=== PATIENT | female | born 1935 | race Hispanic/Latino ===

== ENCOUNTER 2019-06-23 17:35 | Inpatient (IN) | payer MEDICARE ==
[~2019-06-23] VITALS: Ht 165.1 cm; Wt 133.6 kg
[2019-06-23 18:23] LABS: BASOPHILS % (AUTO) 0.2 % (0.0-5.0); EOSINOPHILS % (AUTO) 1.3 % (0.0-8.0); LYMPHOCYTES % (AUTO) 8.6 % (21.0-51.0); MEAN CORPUSCULAR HEMOGLOBIN 28.3 pg (27.0-33.0); MEAN CORPUSCULAR HGB CONC 33.8 g/dL (32.0-36.0); MEAN CORPUSCULAR VOLUME 83.6 fL (79-99); MONOCYTES % (AUTO) 8.1 % (3.0-13.0); NEUTROPHILS % (AUTO) 81.8 % (40.0-77.0); PLATELET COUNT (AUTO) 256 K/uL (130-400); RED BLOOD CELL COUNT(AUTO) 4.18 MIL/uL (4.00-5.50); RED CELL DISTRIBUTION WIDTH 15.8 % (11.0-15.5); WHITE BLOOD COUNT (AUTO) 15.9 K/uL (4.8-10.8)
[2019-06-23 18:35] LABS: INR 1.09 (0.85-1.15); PARTIAL THROMBOPLASTIN TIME 26.8 SEC (26.3-35.5); PROTHROMBIN TIME 11.4 SEC (9.6-11.6)
[2019-06-23] MEDS ORDERED: ONDANSETRON HCL 4 MG/2 ML VIAL ONE (18:37)
[2019-06-23] MEDS ORDERED: MORPHINE SULFATE 4 MG/1ML SYG ONE (18:37)
[2019-06-23 18:41] LABS: CARBON DIOXIDE 22 mmol/L (21-32); CHLORIDE 106 mmol/L (101-111); CREATININE 1.7 mg/dL (0.5-1.5); GLOMERULAR FILTR. RATE CALC 31 mL/min (>60); GLUCOSE,RANDOM 148 mg/dL (70-105); POTASSIUM 4.3 mmol/L (3.5-5.1); SODIUM SERUM 139 mmol/L (136-145); UREA NITROGEN, BLOOD 51 mg/dL (7-18)
[2019-06-23 18:52] LABS: ALANINE AMINOTRANSFERASE 25 U/L (12-78); ALBUMIN 2.8 g/dL (3.5-5.0); ASPARTATE AMINOTRANSFERASE 22 U/L (10-37); BILIRUBIN,TOTAL 0.5 mg/dL (0.2-1.0); CREATINE KINASE, TOTAL 85 U/L (21-232); MYOGLOBIN 227 ng/mL (10-92); TOTAL PROTEIN, SERUM 7.5 g/dL (6.0-8.3); TROPONIN I < 0.04 ng/mL (0.00-0.06)
[2019-06-23] MEDS ORDERED: HEPARIN SODIUM 5000UNIT/ML 1ML VIAL ONE (18:56)
[2019-06-23] MEDS ORDERED: HEPARIN 25000 UNITS/250 ML D5W 250 ML IV ONE (18:56)
[2019-06-23] MEDS ORDERED: ZOSYN 3.375GM+NS 50ML 50 ML IV ONE (19:37)
[2019-06-23] MEDS ORDERED: KETOROLAC TROMETHAMINE 15MG/ML IV PRN (20:45)
[2019-06-23] MEDS: SODIUM CHLORIDE 0.9% 1000ML 1,000 ML IV SCH (20:45)
[2019-06-23] MEDS ORDERED: VANCOMYCIN 1GM+NS 250ML 250 ML IV SCH (20:45)
[2019-06-23] MEDS ORDERED: ONDANSETRON HCL 4 MG/2 ML VIAL IVP PRN (20:45)
[2019-06-23] MEDS ORDERED: VANCOMYCIN PROTOCOL PER PHARMACY IV SCH (21:15)
[2019-06-23] MEDS ORDERED: COMPOUND IV REFRIGERATED 1 EACH IVSOLN MISC PRN (21:30)
[2019-06-23] MEDS ORDERED: VANCOMYCIN 2.5 GM in SODIUM CHLORIDE 0.9% 500ML 500 ML IV ONE (21:30)
[2019-06-23] MEDS ORDERED: VANCOMYCIN 1GM+NS 250ML 250 ML IV ONE (21:46)
[2019-06-23] MEDS ORDERED: SODIUM CHLORIDE 0.9% 1000ML 1,000 ML IV ONE (21:47)
[2019-06-23 22:05] LABS: BASOPHILS % (AUTO) 0.4 % (0.0-5.0); HEMATOCRIT 35.2 % (36-48); LYMPHOCYTES % (AUTO) 9.2 % (21.0-51.0); MEAN CORPUSCULAR HEMOGLOBIN 27.4 pg (27.0-33.0); MEAN CORPUSCULAR HGB CONC 32.9 g/dL (32.0-36.0); MEAN CORPUSCULAR VOLUME 83.3 fL (79-99); MONOCYTES % (AUTO) 8.4 % (3.0-13.0); NUCLEATED RED BLOOD CELLS 0.1 % (0.0-0.19); PLATELET COUNT (AUTO) 250 K/uL (130-400); RED BLOOD CELL COUNT(AUTO) 4.23 MIL/uL (4.00-5.50); RED CELL DISTRIBUTION WIDTH 15.9 % (11.0-15.5); WHITE BLOOD COUNT (AUTO) 16.6 K/uL (4.8-10.8)
[2019-06-23] MEDS ORDERED: KETOROLAC TROMETHAMINE 15MG/ML ONE (22:07)
[2019-06-23] MEDS ORDERED: FAMOTIDINE/PF 20 MG/2 ML VIAL IV ONE (22:08)
[2019-06-23] MEDS ORDERED: SODIUM CHLORIDE 0.9% 500ML 500 ML IV ONE (23:44)
[2019-06-24 00:54] LABS: INR 1.17 (0.85-1.15); PROTHROMBIN TIME 12.2 SEC (9.6-11.6)
[2019-06-24] MEDS ORDERED: ZOSYN 3.375GM+NS 50ML 50 ML IV ONE ×3 (04:18→21:49)
[2019-06-24] MEDS ORDERED: SODIUM CHLORIDE 0.9% 1000ML 1,000 ML IV ONE (04:36)
[2019-06-24 04:40] LABS: BASOPHILS % (AUTO) 0.6 % (0.0-5.0); EOSINOPHILS % (AUTO) 1.6 % (0.0-8.0); HEMATOCRIT 31.9 % (36-48); LYMPHOCYTES % (AUTO) 8.9 % (21.0-51.0); MEAN CORPUSCULAR HEMOGLOBIN 27.5 pg (27.0-33.0); MEAN CORPUSCULAR VOLUME 83.4 fL (79-99); MONOCYTES % (AUTO) 8.7 % (3.0-13.0); NEUTROPHILS % (AUTO) 80.2 % (40.0-77.0); PLATELET COUNT (AUTO) 228 K/uL (130-400); RED BLOOD CELL COUNT(AUTO) 3.82 MIL/uL (4.00-5.50); RED CELL DISTRIBUTION WIDTH 15.9 % (11.0-15.5); WHITE BLOOD COUNT (AUTO) 15.3 K/uL (4.8-10.8)
[2019-06-24 04:48] LABS: HEMOGLOBIN A1C 8.9 % (4.0-6.0)
[2019-06-24 04:58] LABS: ALBUMIN 2.4 g/dL (3.5-5.0); BILIRUBIN,TOTAL 0.6 mg/dL (0.2-1.0); CREATININE 1.7 mg/dL (0.5-1.5); MAGNESIUM 2.2 mg/dL (1.80-2.40); POTASSIUM 4.1 mmol/L (3.5-5.1); TOTAL PROTEIN, SERUM 6.5 g/dL (6.0-8.3)
[2019-06-24] MEDS: ZOSYN 3.375GM+NS 50ML 50 ML IV SCH ×2 (06:00→18:00)
[2019-06-24] MEDS ORDERED: HEPARIN 25000 UNITS/250 ML D5W 250 ML IV ONE (06:19)
[2019-06-24] MEDS ORDERED: FAMOTIDINE/PF 20 MG/2 ML VIAL IV ONE ×2 (08:26→21:50)
[2019-06-24] MEDS: FAMOTIDINE/PF 20 MG/2 ML VIAL IV SCH (09:00)
[2019-06-24 09:14] LABS: INR 1.16 (0.85-1.15); PROTHROMBIN TIME 12.1 SEC (9.6-11.6)
[2019-06-24 09:24] LABS: PARTIAL THROMBOPLASTIN TIME 94.7 SEC (26.3-35.5)
[2019-06-24] MEDS: SODIUM CHLORIDE 0.9% 1000ML 1,000 ML IV SCH ×2 (10:05→23:25)
[2019-06-24] MEDS ORDERED: HYDRALAZINE HCL 20 MG/ML VIAL IV PRN (11:15)
[2019-06-24] MEDS ORDERED: ACET-2247 PO (12:35)
[2019-06-24] MEDS ORDERED: BUME1TAB7 PO (12:35)
[2019-06-24] MEDS ORDERED: ALBUTEROL IH (12:35)
[2019-06-24] MEDS ORDERED: LEVO500T2 PO (12:35)
[2019-06-24] MEDS ORDERED: FAMO-136 PO (12:35)
[2019-06-24] MEDS ORDERED: ATOR20TA65 PO (12:35)
[2019-06-24] MEDS ORDERED: EQUALACTIN PO (12:35)
[2019-06-24] MEDS ORDERED: PLETAL PO (12:35)
[2019-06-24] MEDS ORDERED: GLUCOSAMINE PO (12:35)
[2019-06-24] MEDS ORDERED: POLY17PO29 PO (12:35)
[2019-06-24] MEDS ORDERED: ROBITUSSIN DM PO (12:35)
[2019-06-24] MEDS ORDERED: INSU100I24 SQ ×2 (12:35)
[2019-06-24] MEDS ORDERED: MULT-1268 PO (12:35)
[2019-06-24] MEDS ORDERED: SPIR25TA PO (12:35)
[2019-06-24] MEDS ORDERED: FERR-6 PO (12:35)
[2019-06-24] MEDS ORDERED: SERT25TA PO (12:35)
[2019-06-24] MEDS ORDERED: CEPH500B PO (12:35)
[2019-06-24] MEDS ORDERED: DOCU-116 PO (12:35)
[2019-06-24] MEDS ORDERED: DILT240C46 PO (12:35)
[2019-06-24] MEDS ORDERED: ATEN100T PO (12:35)
[2019-06-24] MEDS ORDERED: TOPICORT TP (12:35)
[2019-06-24] MEDS ORDERED: POTA20TA82 PO (12:35)
[2019-06-24] MEDS ORDERED: METO5TAB7 PO (12:35)
[2019-06-24] MEDS ORDERED: DICL2100G TP (12:35)
[2019-06-24] MEDS ORDERED: FUROSEMIDE 10 MG/ML 2ML VIAL ONE (13:39)
[2019-06-24] MEDS ORDERED: ACETAMINOPHEN EXTRA STRENGTH 500 MG TABLET ONE (15:57)
[2019-06-24 17:13] LABS: INR 1.12 (0.85-1.15); PARTIAL THROMBOPLASTIN TIME 29.1 SEC (26.3-35.5); PROTHROMBIN TIME 11.7 SEC (9.6-11.6)
[2019-06-24] MEDS ORDERED: MORPHINE SULFATE 2 MG/ML 1ML SYG ONE (21:50)
[2019-06-24 23:06] LABS: INR 1.25 (0.85-1.15)
[2019-06-24 23:10] LABS: APPEARANCE,URINE Clear (CLEAR); BILIRUBIN,URINE Negative (NEGATIVE); COLOR,URINE Yellow (YELLOW); GLUCOSE, URINE (UA) Negative (NEGATIVE); KETONES,URINE Negative (NEGATIVE); LEUKOCYTE ESTERASE ,URINE Small (NEGATIVE); NITRATE,URINE Negative (NEGATIVE); OCCULT BLOOD,URINE Trace (NEGATIVE); PROTEIN,URINE Negative (NEGATIVE); UROBILINOGEN,URINE 0.2 mg/dL (0.2-1.0)
[2019-06-24 23:12] LABS: PARTIAL THROMBOPLASTIN TIME > 120.0 SEC (26.3-35.5)
[2019-06-24 23:24] LABS: BACTERIA,URINE Rare /HPF (None Seen); MUCUS,URINE Moderate LPF (None Seen); RBC,URINE 0-1 /HPF (0-1); SQUAMOUS EPITHELIAL CELL,UR Moderate /HPF (0-2)
--- NOTE | 2019-06-24 23:45 | NUR ---
ARRIVAL PATIENT ARRIVED ON UNIT. C/O FULL BODY PAIN WHEN BEING MOVED.C/O BLE PAIN WHEN TOUCHED. R TOES AND FOOT BLACK/ NECROTIC. FOOT COOL TO TOUCH. PICTURES IN CHART. ABSENT PEDAL PULSES. PATIENT REFUSING ASSESSMENT OF POPLITEAL AND FEMORAL PULSES. ALL LUNG SOUNDS DIMINISHED. HARD TO AUSCULTATE POSTERIOR LUNG SOUNDS,PATIENT REFUSES TO BE MOVED. HUITRON CATHETER IN PLACE DRAINING CLEAR YELLOW URINE. PATIENT NPO, AWAITING FURTHER ORDERS FROM [facility] FOR INTERVENTION.
[2019-06-25 00:17] VITALS: BP 139/37
[2019-06-25] MEDS ORDERED: HEPARIN 25000 UNITS/250 ML D5W 250 ML IV ONE (03:46)
[2019-06-25] MEDS ORDERED: HEPARIN SODIUM 5000UNIT/ML 1ML VIAL SQ PRN (04:15)
[2019-06-25] MEDS ORDERED: HEPARIN 25000 UNITS/250 ML D5W 250 ML IV SCH (04:15)
[2019-06-25 04:21] VITALS: BP 112/37
[2019-06-25] MEDS: INSULIN HUMULIN R 100 UNIT/ML 3ML SQ SCH ×4 (05:57→20:42)
[2019-06-25] MEDS: ZOSYN 3.375GM+NS 50ML 50 ML IV SCH ×2 (06:00→17:04)
--- NOTE | 2019-06-25 07:02 | NUR ---
PTT DRAWN AT 0630. AWAITING RESULTS FOR HEPARIN DRIP. DRIP CURRENTLY AT 22ML/HR.
[2019-06-25] MEDS: FAMOTIDINE/PF 20 MG/2 ML VIAL IV SCH (07:14)
[2019-06-25] MEDS: ACETAMINOPHEN EXTRA STRENGTH 500 MG TABLET PO PRN ×2 (08:00→17:24)
[2019-06-25 08:04] VITALS: BP 139/57
[2019-06-25 08:11] LABS: BASOPHILS % (AUTO) 0.7 % (0.0-5.0); EOSINOPHILS % (AUTO) 2.1 % (0.0-8.0); LYMPHOCYTES % (AUTO) 10.2 % (21.0-51.0); MEAN CORPUSCULAR HEMOGLOBIN 27.6 pg (27.0-33.0); MEAN CORPUSCULAR HGB CONC 32.7 g/dL (32.0-36.0); MEAN CORPUSCULAR VOLUME 84.5 fL (79-99); MONOCYTES % (AUTO) 6.7 % (3.0-13.0); NEUTROPHILS % (AUTO) 80.3 % (40.0-77.0); NUCLEATED RED BLOOD CELLS 0.1 % (0.0-0.19); PLATELET COUNT (AUTO) 205 K/uL (130-400); RED BLOOD CELL COUNT(AUTO) 4.62 MIL/uL (4.00-5.50); RED CELL DISTRIBUTION WIDTH 15.9 % (11.0-15.5); WHITE BLOOD COUNT (AUTO) 13.7 K/uL (4.8-10.8)
--- NOTE | 2019-06-25 08:20 | NUR ---
ASSESSMENT PT IS AAOX3 DENIES CP DENIES SOB DENIES NV STATES SHE FEELS BACK PAIN, PO TYLENOL GIVEN. HEPARIN INFUSING PER PROTOCOL. RESTING IN BED. CALL LIGHT WITHIN REACH. FAMILY IS AT BEDSIDE.
[2019-06-25 08:45] LABS: B-TYPE NATRIURETIC PEPTIDE 324 pg/mL (0-100)
--- NOTE | 2019-06-25 08:51 | NUR ---
DR AVILES ROUNDED / ORTHO CONSULT ORTHO CONSULT PLACED WITH OLIVIER AT DR SIM ANSWERING SERVICE
--- NOTE | 2019-06-25 09:15 | NUR ---
CONSULT CHANGED TO DR ARNALDO SIM STATES HE DOESNT DO AMPUTATIONS. DR MCINTOSH CALLED FOR CONSULT AND STATES HE WILL SEE PATIENT.
[2019-06-25 11:46] VITALS: BP 135/48
[2019-06-25] MEDS: SODIUM CHLORIDE 0.9% 1000ML 1,000 ML IV SCH (11:52)
--- NOTE | 2019-06-25 13:19 | NUR ---
D/C PLAN CM spoke to pts sister named Rozina Rodriguez regarding d/c planning. pt is penitentiary resident at [facility] in [place]. States plan is to return to same facility at discharge. CM received telephone consent for [facility] to facility. CM to f/u. Addendum: 06/25/19 at 1321 by SHAINA HINTON CM Amended: Links added.
[2019-06-25] MEDS ORDERED: MORPHINE SULFATE 2 MG/ML 1ML SYG IVP PRN (14:15)
[2019-06-25 15:28] VITALS: BP 99/52
--- NOTE | 2019-06-25 16:53 | NUR ---
STATUS RESTING IN BED, DENIES PAIN. STATES MORPHINE IV HELPED GREATLY FOR RIGHT LEG/ FOOT PAIN. CALL LIGHT WITHIN REACH.
[2019-06-25] MEDS: HEPARIN 25000 UNITS/250 ML D5W 250 ML IV PRN (17:27)
[2019-06-25] MEDS ORDERED: VANCOMYCIN 1.5 GM in SODIUM CHLORIDE 0.9% 250 ML IV SCH (18:00)
[2019-06-25 20:05] VITALS: BP 129/33
[2019-06-26 00:22] VITALS: BP 137/28
[2019-06-26 02:52] LABS: CREATININE 1.6 mg/dL (0.5-1.5); POTASSIUM 3.7 mmol/L (3.5-5.1)
[2019-06-26 04:21] VITALS: BP 122/30
[2019-06-26] MEDS: ZOSYN 3.375GM+NS 50ML 50 ML IV SCH ×2 (05:35→17:44)
[2019-06-26] MEDS: INSULIN HUMULIN R 100 UNIT/ML 3ML SQ SCH ×4 (07:00→21:42)
[2019-06-26] MEDS: FAMOTIDINE/PF 20 MG/2 ML VIAL IV SCH (07:15)
[2019-06-26 07:56] VITALS: BP 122/39
--- NOTE | 2019-06-26 08:00 | NUR ---
ASSESSMENT PT IS AAOX3 DENIES CP DENIES SOB DENIES NV. HEPARIN INFUSING PER PROTOCOL. RESTING IN BED. CALL LIGHT WITHIN REACH. FAMILY IS AT BEDSIDE.
[2019-06-26] MEDS: HEPARIN 25000 UNITS/250 ML D5W 250 ML IV PRN (09:21)
[2019-06-26] MEDS: SODIUM CHLORIDE 0.9% 1000ML 1,000 ML IV SCH ×2 (09:24→14:46)
[2019-06-26] MEDS: MORPHINE SULFATE 2 MG/ML 1ML SYG IVP PRN (11:39)
[2019-06-26 11:40] VITALS: BP 108/43
--- NOTE | 2019-06-26 13:10 | NUR ---
DR SMITH ROUNDED SAW PATIENT, ORDERS RECEIVED. POSSIBLE SURGERY TOMORROW AFTER 3PM, HE IS NOT SURE YET. JERRY SANDRA MADE AWARE.
[2019-06-26 15:40] VITALS: BP 103/44
[2019-06-26 19:49] VITALS: BP 138/30
[2019-06-27] VITALS (9 sets, daily range): BP systolic 100–172; BP diastolic 30–64
[2019-06-27] MEDS: HEPARIN 25000 UNITS/250 ML D5W 250 ML IV PRN ×2 (04:18→18:21)
[2019-06-27] MEDS: SODIUM CHLORIDE 0.9% 1000ML 1,000 ML IV SCH ×2 (04:23→18:16)
[2019-06-27 04:28] LABS: BASOPHILS % (AUTO) 0.3 % (0.0-5.0); EOSINOPHILS % (AUTO) 0.7 % (0.0-8.0); HEMATOCRIT 32.5 % (36-48); LYMPHOCYTES % (AUTO) 8.3 % (21.0-51.0); MEAN CORPUSCULAR HEMOGLOBIN 27.7 pg (27.0-33.0); MEAN CORPUSCULAR HGB CONC 33.4 g/dL (32.0-36.0); MONOCYTES % (AUTO) 8.8 % (3.0-13.0); NEUTROPHILS % (AUTO) 81.9 % (40.0-77.0); PLATELET COUNT (AUTO) 217 K/uL (130-400); RED BLOOD CELL COUNT(AUTO) 3.92 MIL/uL (4.00-5.50); RED CELL DISTRIBUTION WIDTH 15.7 % (11.0-15.5); WHITE BLOOD COUNT (AUTO) 16.1 K/uL (4.8-10.8)
--- NOTE | 2019-06-27 05:00 | NUR ---
Ptt under therapeutic bolus of 35u/kg given and increased according to protocol.
[2019-06-27] MEDS: ZOSYN 3.375GM+NS 50ML 50 ML IV SCH ×2 (05:21→18:16)
[2019-06-27] MEDS: INSULIN HUMULIN R 100 UNIT/ML 3ML SQ SCH ×4 (06:31→21:00)
--- NOTE | 2019-06-27 07:39 | NUR ---
Patient remains on heparin drip. Report given to Jose Enrique in regards to possible procedure with Salinae. Aware heparin drip needs to be stopped 6 hours prior.
--- NOTE | 2019-06-27 09:30 | NUR ---
CALLED DR. Jesus ANNA'S OFFICE ORDERED TO INQUIRE RE:PT.'S SURGERY. SPOKE WITH HAYDEN, OFFICE STAFF MEMBER, WHO WILL "GET IN TOUCH" WITH DR. ANNA AND WILL CALL BACK WITH ORDERS. AWAITING RESPONSE.
[2019-06-27] MEDS: FAMOTIDINE/PF 20 MG/2 ML VIAL IV SCH (09:42)
--- NOTE | 2019-06-27 10:10 | NUR ---
RECEIVED RETURN CALL FROM DR. WILFRIDO BLAKE'S OFFICE STAFF MEMBER. STATES DR. ANNA WILL NOT PERFORM PT.'S SURGERY TODAY AND WILL COME TO PT.'S ROOM AND SPEAK WITH HER LATER TODAY REGARDING THE MATTER.
[2019-06-27] MEDS: VANCOMYCIN 1.5 GM in SODIUM CHLORIDE 0.9% 250 ML IV SCH (18:16)
[2019-06-28 03:28] VITALS: BP 102/29
[2019-06-28] MEDS: MORPHINE SULFATE 2 MG/ML 1ML SYG IVP PRN (05:20)
[2019-06-28] MEDS: ZOSYN 3.375GM+NS 50ML 50 ML IV SCH ×2 (05:20→17:43)
[2019-06-28 07:56] VITALS: BP_SYST 126; BP_SYST 140; BP_DIAS 42; BP_DIAS 58
[2019-06-28] MEDS: FAMOTIDINE/PF 20 MG/2 ML VIAL IV SCH (08:50)
[2019-06-28] MEDS: SODIUM CHLORIDE 0.9% 1000ML 1,000 ML IV SCH (08:50)
--- NOTE | 2019-06-28 09:48 | NUR ---
DR. SEGOVIA IN ROOM SPEAKING WITH PT. AND FAMILY MEMBERS AT BEDSIDE RE:PLAN OF CARE. QUESTIONS ANSWERED BY DR. SEGOVIA.
[2019-06-28] MEDS: HEPARIN 25000 UNITS/250 ML D5W 250 ML IV PRN (10:31)
--- NOTE | 2019-06-28 11:17 | NUR ---
SPOKE WITH PT.'S DAUGHTER, NANETTE HERNANDEZ (DECISION MAKER PER FAMILY) AT BEDSIDE, AND FAMILY MEMBERS AT BEDSIDE RE:CODE STATUS. ALL IN AGREEMENT FOR PT. TO CONTINUE TO BE A FULL CODE. INFORMED FAMILY MEMBERS CODE STATUS MAY BE CHANGED/MODIFIED AT ANY TIME THEY WISH, QUESTIONS ANSWERED AND VERBALIZED MUTUAL UNDERSTANDING.
--- NOTE | 2019-06-28 11:24 | NUR ---
CALLED DR. Jesus ANNA'S OFFICE TO INQUIRE RE:SURGICAL INTERVENTION SCHEDULING, PER PT.'S FAMILY REQUEST. SPOKE WITH HAYDEN, OFFICE STAFF MEMBER WHO STATES HE WILL NOTIFY DR. ANNA OF CALL AND PT.'S FAMILY CONCERNS, WELL PROVIDE MD WITH NUMBER PROVIDED FOR RETURN CALL TO THIS NURSE.
[2019-06-28] MEDS: INSULIN HUMULIN R 100 UNIT/ML 3ML SQ SCH ×3 (11:30→21:12)
[2019-06-28 11:48] VITALS: BP 118/67
[2019-06-28 15:43] VITALS: BP 111/40
[2019-06-28] MEDS: VANCOMYCIN 1.5 GM in SODIUM CHLORIDE 0.9% 250 ML IV SCH (17:44)
[2019-06-28 19:14] VITALS: BP 133/28
[2019-06-28 23:35] VITALS: BP 112/54
[2019-06-29] VITALS (23 sets, daily range): BP systolic 90–150; BP diastolic 18–75
--- NOTE | 2019-06-29 | NUR ---
Dialysis removed 1.7 liters. Patient tolerated procedure well. Addendum: 06/29/19 at 9918 by CHUCK BOTELLO RN RN wrong patient.
[2019-06-29] MEDS: MORPHINE SULFATE 2 MG/ML 1ML SYG IVP PRN (03:18)
[2019-06-29 04:27] LABS: INR 1.18 (0.85-1.15); PARTIAL THROMBOPLASTIN TIME 32.8 SEC (26.3-35.5); PROTHROMBIN TIME 12.3 SEC (9.6-11.6)
[2019-06-29] MEDS: ZOSYN 3.375GM+NS 50ML 50 ML IV SCH ×2 (05:56→18:09)
[2019-06-29] MEDS: INSULIN HUMULIN R 100 UNIT/ML 3ML SQ SCH ×4 (07:30→21:00)
[2019-06-29] MEDS: FAMOTIDINE/PF 20 MG/2 ML VIAL IV SCH (08:57)
[2019-06-29] MEDS ORDERED: SODIUM CHLORIDE 0.9% 1000ML 1,000 ML IV ONE (12:58)
[2019-06-29] MEDS ORDERED: PROPOFOL 10 MG/ML 20ML VIAL IV ONE ×2 (14:01→14:30)
[2019-06-29] MEDS ORDERED: ROCURONIUM 10MG/1ML SYR 10 MG/ML ML ONE ×2 (14:02→14:30)
[2019-06-29] MEDS ORDERED: ROPIVACAINE 0.5% 5MG/ML 30ML IJ ONE (14:03)
--- NOTE | 2019-06-29 14:28 | NUR ---
RD NOTIFICATION Dx: Right Foot Necrosis. Hx: DM, Bedbound, HTN. Diet: NPO; pending procedure. Po intake poor and has poor appetite according to family. Family stated pt has a history of Constipation. RD recommends continue current diet. Advance as tolerated when medically feasible to 75gmCCD. Offer Glucerna TID after procedure. Pt seems to do better with nutritional shakes as per family. Recommend feeding assistance with all meals. RD will continue to monitor and follow up as needed. Keysha Carter MS, ELOISA Addendum: 06/29/19 at [address] RD Amended: Links added.
[2019-06-29] MEDS ORDERED: LIDOCAINE PF 2% 5ML ABBOJECT ONE (14:30)
[2019-06-29] MEDS ORDERED: FENTANYL CITRATE PF 50 MCG/1 ML 5ML AMP IV ONE (14:30)
[2019-06-29] MEDS ORDERED: GLYCOPYRROLATE 1 MG/5 ML SYRINGE ONE ×2 (14:53→16:11)
[2019-06-29] MEDS ORDERED: HYDRALAZINE HCL 20 MG/ML VIAL ONE (15:34)
[2019-06-29] MEDS ORDERED: FENTANYL CITRATE PF 50 MCG/1 ML 2ML VIAL ONE (15:39)
[2019-06-29] MEDS ORDERED: BACITRACIN 50,000 UNIT VIAL ONE (15:44)
[2019-06-29] MEDS ORDERED: NEOSTIGMINE 5MG/5ML SYR IV ONE (16:11)
--- NOTE | 2019-06-29 17:10 | NUR ---
TIMMY MÁRQUEZ NOTIFIED OF PT'S LOW DIASTOLIC BP. NS 200 ML BOLUS ORDERED. GIVEN IN PACU. Addendum: 06/29/19 at 1731 by JOSE ELIAS MONTANA RN RN Amended: Links added.
--- NOTE | 2019-06-29 17:20 | NUR ---
TIMMY ARNETT TO SEE PT. VS WERE OBSERVED, AND PT ASSESSED BY [facility], ORDERS WERE GIVEN TO TRANSFER PT TO HER RM, FOR FURTHER MONITORING. Addendum: 06/29/19 at 1748 by JOSE ELIAS MONTANA RN RN Amended: Links added.
[2019-06-29] MEDS: VANCOMYCIN 1.5 GM in SODIUM CHLORIDE 0.9% 250 ML IV SCH (18:08)
[2019-06-29] MEDS ORDERED: OXYCODONE/ACETAMIN 5/325MG TAB PO PRN (19:45)
[2019-06-29] MEDS ORDERED: HYDROMORPHONE 1 MG/1 ML AMP IVP PRN (19:45)
--- NOTE | 2019-06-29 20:00 | NUR ---
PM NOTE PT RESTING IN BED, NO S/S OF DISTRESS. PATIENT ON NASAL CANULA, FAMILY AT BEDSIDE. PATIENT DENIES PAIN AT THIS TIME. SURGICAL DRESSING TO RIGHT STUMP C/D/I. HUITRON TO GRAVITY, URINE BLOOD TINGED. ON TELEMETRY PATIENT AFLUTTER AT 52. CALL LIGHT WITHIN REACH, INSTRUCTED TO CALL FOR ASSISTANCE. VERBALIZED UNDERSTANDING.
[2019-06-30] VITALS (7 sets, daily range): BP systolic 15–152; BP diastolic 39–46
[2019-06-30] MEDS: KETOROLAC TROMETHAMINE 30MG/ML IV PRN ×3 (01:25→21:32)
[2019-06-30 03:52] LABS: BASOPHILS % (AUTO) 0.6 % (0.0-5.0); EOSINOPHILS % (AUTO) 0.1 % (0.0-8.0); LYMPHOCYTES % (AUTO) 7.6 % (21.0-51.0); MEAN CORPUSCULAR HEMOGLOBIN 27.2 pg (27.0-33.0); MEAN CORPUSCULAR HGB CONC 32.5 g/dL (32.0-36.0); MEAN CORPUSCULAR VOLUME 83.8 fL (79-99); MONOCYTES % (AUTO) 6.9 % (3.0-13.0); NEUTROPHILS % (AUTO) 84.8 % (40.0-77.0); PLATELET COUNT (AUTO) 213 K/uL (130-400); RED BLOOD CELL COUNT(AUTO) 3.11 MIL/uL (4.00-5.50); RED CELL DISTRIBUTION WIDTH 16.4 % (11.0-15.5); WHITE BLOOD COUNT (AUTO) 19.5 K/uL (4.8-10.8)
[2019-06-30] MEDS: ZOSYN 3.375GM+NS 50ML 50 ML IV SCH ×2 (05:33→18:15)
[2019-06-30] MEDS: INSULIN HUMULIN R 100 UNIT/ML 3ML SQ SCH ×4 (06:01→21:26)
[2019-06-30] MEDS: FAMOTIDINE/PF 20 MG/2 ML VIAL IV SCH (09:06)
[2019-06-30] MEDS ORDERED: COMPOUND IV MISC 1 EACH IVSOLN MISC PRN (10:30)
--- NOTE | 2019-06-30 13:58 | NUR ---
NARCISO ORTIZ VISITED WITH PATIENT AND FAMILY. DAUGHTERS AT BEDSIDE. [facility] SIGNED FOR [facility]. THEY WANT PATIENT TO MOVE FROM [facility] TO [facility]. THEY LIVE IN [place] AND ITS CLOSER TO THE [place]ID[place] THEY CROSS. 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 SPOKE TO REP AT [facility] TOLD MK THE SITUATION SAID OKAY BUT I HAVE TO GIVE INFO TO [facility] HAVE BEEN TRYING TO GET THROUGH TO [facility] FOR 3 HRS NOW FINALLY ANSWERED. TRANSFERRED TO [facility] WHOSE VOICE MAIL IS FULL. CALLED MK SAID WILL TRY TO GET ME CONTACT INFO FOR [facility] AND WILL CALL ME BACK. Addendum: 06/30/19 at 1404 by CARYN TIDWELL RN CM Amended: Links added.
[2019-06-30] MEDS: PREGABALIN 25 MG CAP PO SCH ×2 (14:22→21:22)
--- NOTE | 2019-06-30 16:08 | NUR ---
DC PLAN [facility] SIGNED. AFTER MULTIPLE ATTEMPTS TO REACH FACILITY OR MANAGER, CHANDRIKA HOOKER, OR MANAGER FOR [facility] IN [place] MADE AWARE OF REFERRAL. REFERRAL AND CLINICALS FAXED TO OR MANAGER, PENDING VISIT BY REP.
--- NOTE | 2019-06-30 16:42 | NUR ---
RD NOTIFICATION/ FOLLOW UP Dx: Critical Limb Ischemia. Diet: 75GMCCD. Po intake 75% and has good appetite as per family. S/P Above-Knee Amputation 06/29. RD consult for eval/treat PCM. RD recommends continue current diet. Add Glucerna TID, Alonso BID and Promod 30mls BID. RD informed family the importance of protein/vitamin/mineral supplementation for several weeks. Will monitor Kidney status and labs. RD will continue to monitor and follow up as needed. Keysha Catrer MS, RDN Addendum: 06/30/19 at [address] RD Amended: Links added.
[2019-06-30] MEDS: VANCOMYCIN 1.5 GM in SODIUM CHLORIDE 0.9% 250 ML IV SCH (18:00)
[2019-06-30] MEDS: VANCOMYCIN 1.25 GM in SODIUM CHLORIDE 0.9% 250 ML IV SCH (18:00)
[2019-06-30] MEDS: APIXABAN 2.5 MG TABLET PO SCH (21:23)
[2019-07-01 03:00] VITALS: BP 120/48
[2019-07-01 04:40] LABS: HEMATOCRIT 22.9 % (36-48); MEAN CORPUSCULAR HGB CONC 32.6 g/dL (32.0-36.0); NUCLEATED RED BLOOD CELLS 0.1 % (0.0-0.19); PLATELET COUNT (AUTO) 249 K/uL (130-400); RED BLOOD CELL COUNT(AUTO) 2.76 MIL/uL (4.00-5.50); RED CELL DISTRIBUTION WIDTH 16.6 % (11.0-15.5)
[2019-07-01 04:53] LABS: % IRON SATURATION 15.7 % (22-44)
[2019-07-01 04:59] LABS: B-TYPE NATRIURETIC PEPTIDE 313 pg/mL (0-100)
[2019-07-01 05:00] LABS: ALBUMIN 1.7 g/dL (3.5-5.0); CREATININE 2.5 mg/dL (0.5-1.5); MAGNESIUM 2.3 mg/dL (1.80-2.40); PHOSPHORUS 4.2 mg/dL (2.5-4.9); POTASSIUM 3.6 mmol/L (3.5-5.1)
[2019-07-01] MEDS: ZOSYN 3.375GM+NS 50ML 50 ML IV SCH ×2 (06:00→20:21)
[2019-07-01] MEDS: INSULIN HUMULIN R 100 UNIT/ML 3ML SQ SCH ×3 (06:02→17:41)
[2019-07-01 08:00] VITALS: BP 103/58
[2019-07-01] MEDS ORDERED: ASCORBIC ACID 500 MG TAB PO SCH (09:00)
[2019-07-01] MEDS ORDERED: IRON SUCROSE COMPLEX 100 MG in SODIUM CHLORIDE 0.9% 50 ML IV SCH (09:00)
[2019-07-01] MEDS ORDERED: ZINC SULFATE 220 CAPSULE PO SCH (09:00)
[2019-07-01] MEDS: APIXABAN 2.5 MG TABLET PO SCH (09:00)
[2019-07-01] MEDS: PREGABALIN 25 MG CAP PO SCH ×3 (09:52→20:21)
[2019-07-01] MEDS: FAMOTIDINE/PF 20 MG/2 ML VIAL IV SCH (09:52)
[2019-07-01 11:00] VITALS: BP 118/70
[2019-07-01] MEDS ORDERED: SODIUM CHLORIDE 0.9% 250 ML IV ONE (14:28)
--- NOTE | 2019-07-01 14:41 | NUR ---
DC PLAN SPOKE TO MD AND PHYSICAL THERAPY PATIENT. HAVING A LOT OF PAIN AND EDEMA IN REMAINING. LEG. PATIENT OBESE AND HAVING DIFFICULTY WITH MOVEMENT AND BREATHING. MD SAID SEND REFERRAL TO [facility]. SPOKE TO SISTERS THEY AGREED. PACKET GIVEN TO KIRSTIN. VISITED WITH PATIENT AND FAMILY PENDING AUTH. MOT AND EMS SET UP. EMS BEDBOUND, BMI OF 49 AND 02 2L NC. PENDING ACCEPTANCE. Addendum: 07/01/19 at 1443 by CARYN TIDWELL RN Amended: Links added.
[2019-07-01] MEDS: ACETAMINOPHEN EXTRA STRENGTH 500 MG TABLET PO PRN (15:34)
[2019-07-01 16:00] VITALS: BP 143/46
[2019-07-01] MEDS: VANCOMYCIN 1.25 GM in SODIUM CHLORIDE 0.9% 250 ML IV SCH (18:09)
[2019-07-01 19:00] VITALS: BP 85/55
--- NOTE | 2019-07-01 22:15 | NUR ---
PATIENT DISMISSED/TRANSFERRED TO [facility] VIA STRETCHER. PAPERWORK GIVEN TO SPA MANAGER/ESTHETICIAN AND SEND WITH PERSONNEL. FAMILY HERE AT TIME OF TRANSFER.
== END 2019-07-01 20:20 | DRG 240 ==
LOC: EDH 17:35 → EDHIP 20:40 → 2DH 06-24 23:44
PROVIDERS: ADMIT Internal Medicine; ATTEND Internal Medicine
PROC: 30233N1 Transfusion of Nonautologous Red Blood Cells into Peripheral Vein, Percutaneous Approach (ICD-10-PCS; 2019-06-29)
PROC: 0Y6C0Z1 Detachment at Right Upper Leg, High, Open Approach (ICD-10-PCS; principal; 2019-06-29 14:55)
PROC: 5A09357 Assistance with Respiratory Ventilation, Less than 24 Consecutive Hours, Continuous Positive Airway Pressure (ICD-10-PCS; 2019-06-30)
PROC: 5A09357 Assistance with Respiratory Ventilation, Less than 24 Consecutive Hours, Continuous Positive Airway Pressure (ICD-10-PCS; 2019-07-01)
DX: E11.52 Type 2 diabetes mellitus with diabetic peripheral angiopathy with gangrene (principal); N17.9 Acute kidney failure, unspecified; I13.0 Hypertensive heart and chronic kidney disease with heart failure and stage 1 through stage 4 chronic kidney disease, or unspecified chronic kidney disease; D68.59 Other primary thrombophilia; I48.20 Chronic atrial fibrillation, unspecified; Z68.42 Body mass index [BMI] 45.0-49.9, adult; I96 Gangrene, not elsewhere classified; E11.65 Type 2 diabetes mellitus with hyperglycemia; I99.8 Other disorder of circulatory system; I50.9 Heart failure, unspecified; E66.01 Morbid (severe) obesity due to excess calories; N18.3 Chronic kidney disease, stage 3 (moderate); E11.22 Type 2 diabetes mellitus with diabetic chronic kidney disease; E11.21 Type 2 diabetes mellitus with diabetic nephropathy; E78.5 Hyperlipidemia, unspecified; I35.0 Nonrheumatic aortic (valve) stenosis; J44.9 Chronic obstructive pulmonary disease, unspecified; Z74.01 Bed confinement status; Z79.01 Long term (current) use of anticoagulants
CPT/HCPCS: 36415; 36430; 71045; 80048; 80053; 80061; 80202; 81001; 82040; 82550; 82948; 83036; 83540; 83550; 83605; 83735; 83874; 83880; 84100; 84145; 84484; 85025; 85027; 85610; 85730; 86850; 86900; 86901; 86922; 87040; 87088; 88307; 93005; 93925; 93970; 94660; 99291; G0378; J0360; J1644; J1756; J1815; J1885; J1940; J2001; J2270; J2405; J2543; J2704; J2710; J2795; J3010; J3370; J3490; J7030; J7040; P9016